=== PATIENT | female | born 1940 | race Caucasian/White ===

== ENCOUNTER → 2017-01-02 | Day surgery (SDC) | payer MEDICARE, BC ==
[~2017-01-02] MED LIST: CALC1TAB PO; CINN500C2 PO; DILT120C80 PO; DILT180C2 PO; FLUT9.9S NS; HYDR12.58 PO; HYDROmorphone 2 MG/ML VIAL IV PRN; INSU100C4 SQ; IV RINGERS,LACTATED 1000ML 1,000 ML IV SCH; LATA2.5D3 EACHEYE; LIDOCAINE 1% PF 2 ML VIAL. ID PRN; LIDOCAINE 2% PF Vial for OR 5 ML VIAL. ONE; LISI-334 PO; METH-39 PO; MORPHINE SULFATE 2 MG/ML DISP.SYRIN. IV PRN; MULT1TAB52 PO; OMEG1CAP38 PO; OMEP20CA9 PO; ONDANSETRON PF 4 MG/2 ML VIAL. IV PRN; OXYB5TAB7 PO; PROCHLORPERAZINE 10 MG/2 ML VIAL. IV PRN; PROPOFOL 40 ML IV ONE; TIMO10DR5 EACHEYE; fentaNYL PF VIAL 100 MCG/2 ML VIAL IV PRN
[2017-01-02 09:09] VITALS: BP 139/63
--- NOTE | 2017-01-04 00:02 | PATHOLOGY ---
PATHOLOGY REPORT * * * * * * * * FINAL DIAGNOSIS: Colorectal biopsies, rectal polyps: - Hyperplastic polyps. (JPM:amarilys; 01/03/2017) COMMENT: There are no adenomatous changes or evidence of malignancy. REPORT ELECTRONICALLY SIGNED BY: Elijah Etienne M.D. DATE/TIME: 01/03/2017 15:44 * * * * * * * * GROSS PATHOLOGY: Received in formalin labeled "Neo Tam, rectal polyps," are 3 segments of ceja soft tissue measuring 0.7 x 0.4 x 0.4 cm in aggregate dimensions and ranging from 0.2 to 0.3 cm in maximum dimension. The specimen is submitted entirely in cassette A1. (TSD; 01/02/2017) INITIAL CPT CODE(S): A; 47854 Professional services performed [place] [facility] [address] Technical services performed by [facility] at [address] [place] [address]. SPECIMEN(S) RECEIVED: A.Rectal polyps CLINICAL HISTORY: [facility] PATIENT: NEO TAM /AGE: 5 1940 (Age: 76) PATIENT #: [id number] ALT CASE #: SPECIMEN COLLECTION DATE: 01/02/2017 SPECIMEN RECEIVED DATE: 01/02/2017 [facility] - [address] [place] [address] - PHONE: [phone] * * * END OF REPORT * * *
== END | disposition home or self-care (01) ==
LOC: ENDOS 07:00
PROVIDERS: ATTEND Internal Medicine Gastroenterology
DX: Z09 Encounter for follow-up examination after completed treatment for conditions other than malignant neoplasm (principal); Z86.010 Personal history of colon polyps; K64.0 First degree hemorrhoids; K62.1 Rectal polyp; K57.30 Diverticulosis of large intestine without perforation or abscess without bleeding; K21.9 Gastro-esophageal reflux disease without esophagitis; E11.9 Type 2 diabetes mellitus without complications; Z98.41 Cataract extraction status, right eye; Z98.42 Cataract extraction status, left eye; Z98.890 Other specified postprocedural states; Z90.710 Acquired absence of both cervix and uterus; Z86.69 Personal history of other diseases of the nervous system and sense organs; Z87.442 Personal history of urinary calculi; Z86.39 Personal history of other endocrine, nutritional and metabolic disease; Z88.6 Allergy status to analgesic agent; Z88.0 Allergy status to penicillin; Z88.2 Allergy status to sulfonamides
CPT/HCPCS: 45380; 88305; J2704; J2001

== ENCOUNTER 2017-02-11 10:56 | Emergency (ER) | payer MEDICARE, BC ==
[~2017-02-11 10:56] MED LIST changes: -HYDROmorphone 2 MG/ML VIAL IV PRN; -IV RINGERS,LACTATED 1000ML 1,000 ML IV SCH; -LIDOCAINE 1% PF 2 ML VIAL. ID PRN; -LIDOCAINE 2% PF Vial for OR 5 ML VIAL. ONE; -MORPHINE SULFATE 2 MG/ML DISP.SYRIN. IV PRN; -ONDANSETRON PF 4 MG/2 ML VIAL. IV PRN; -PROCHLORPERAZINE 10 MG/2 ML VIAL. IV PRN; -PROPOFOL 40 ML IV ONE; -fentaNYL PF VIAL 100 MCG/2 ML VIAL IV PRN
[2017-02-11 11:23] VITALS: BP 170/108
--- NOTE | 2017-02-11 11:33 | PHYS DOC ---
Adult General Chief Complaint Chief Complaint: ANKLE PROBLEM HPI HPI Patient is a 76 year old female presents the ED complaining of right ankle injury 3 hours. Patient states she was sitting down reading and when she went to get up she twisted her ankle. Describes the pain as sharp. Rates the pain as 7 out of 10. Associated symptoms include swelling. Denies laceration, symptoms prior to fall, head/neck injury, LOC, vision changes or nausea/vomiting. Review of Systems Review of Systems Constitutional: Denies fever or chills [] Eyes: Denies change in visual acuity, redness, or eye pain [] HENT: Denies nasal congestion or sore throat [] Respiratory: Denies cough or shortness of breath [] Cardiovascular: No additional information not addressed in HPI [] GI: Denies abdominal pain, nausea, vomiting, bloody stools or diarrhea [] : Denies dysuria or hematuria [] Musculoskeletal: Complains of ankle pain. Denies back pain[] Integument: Denies rash or skin lesions [] Neurologic: Denies headache, focal weakness or sensory changes [] Endocrine: Denies polyuria or polydipsia [] All other systems were reviewed and found to be within normal limits, except as documented in this note. Allergies Allergies Allergies Coded Allergies Type Severity Reaction Last Updated Verified Penicillins Allergy Intermediate Hives 01/02/17 Yes Sulfa (Sulfonamide Antibiotics) Allergy Intermediate Hives 01/02/17 Yes aspirin Allergy Intermediate Swelling 01/02/17 Yes meperidine Allergy Mild Nausea and Vomiting 02/11/17 Yes Physical Exam Physical Exam Constitutional: Well developed, well nourished, no acute distress, non-toxic appearance. [] HENT: Normocephalic, atraumatic Skin: Warm, dry, no erythema, no rash. [] Back: No tenderness, no CVA tenderness. [] Extremities: MILD RIGHT ANKLE TENDERNESS/SWELLING, no cyanosis, no clubbing, ROM intact, no edema. [] Neurologic: Alert and oriented X 3, normal motor function, normal sensory function, no focal deficits noted. [] Psychologic: Affect normal, judgement normal, mood normal. [] Current Patient Data Vital Signs Vital Signs Date Time Temp Pulse Resp B/P (MAP) Pulse Ox O2 Delivery O2 Flow Rate FiO2 02/11/17 11:23 98.3 60 20 97 Room Air 98.3 EKG EKG [] Radiology/Procedures Radiology/Procedures PROCEDURE: ANKLE RIGHT 3V; FOOT RIGHT 3V Examination: 3 views of the right foot and right ankle History: History of injury Comparison: None available Findings: The alignment of the ankle mortise grossly appears unremarkable. Mild degenerative changes identified in the ankle joint. There is no obvious acute fracture visualized. Osseous demineralization limits evaluation. There is mild soft tissue swelling identified surrounding the ankle joint. The alignment of the tarsal bones, tarsometatarsal joints, interphalangeal grossly appears unremarkable. Mild degenerative changes identified in the tarsal joints. Impression: 1. No acute osseous findings. [] Course & Med Decision Making Course & Med Decision Making Pertinent Labs and Imaging studies reviewed. (See chart for details) []XR negative for acute injury. Patient's pain improved. Vital stable, no acute distress. Discussed symptomatic treatment. Patient able to ambulate on crutches patient brought into ED. Discussed follow-up outpatient with orthopedics if pain persists. Provided contact information/education. Discussed remaining non- weightbearing until further evaluation. Discussed reasons to return to the ED. Patient understands and agrees with plan. Dragon Disclaimer Dragon Disclaimer This electronic medical record was generated, in whole or in part, using a voice recognition dictation system. Departure Departure Impression: Primary Impression: Ankle sprain Disposition: 01 HOME, SELF-CARE Condition: IMPROVED Referrals: TYREE THURMAN MD (PCP) GUNJAN TYSON MD Patient Instructions: Ankle Sprain MARY LUTHER Feb 11, 2017 11:33
--- NOTE | 2017-02-11 12:12 | RAD ---
Examination: 3 views of the right foot and right ankle History: History of injury Comparison: None available Findings: The alignment of the ankle mortise grossly appears unremarkable. Mild degenerative changes identified in the ankle joint. There is no obvious acute fracture visualized. Osseous demineralization limits evaluation. There is mild soft tissue swelling identified surrounding the ankle joint. The alignment of the tarsal bones, tarsometatarsal joints, interphalangeal grossly appears unremarkable. Mild degenerative changes identified in the tarsal joints. Impression: 1. No acute osseous findings.
== END 2017-02-11 12:30 | disposition home or self-care (01) ==
LOC: ER 10:56
DX: S93.401A Sprain of unspecified ligament of right ankle, initial encounter (principal); Z88.0 Allergy status to penicillin; Z88.2 Allergy status to sulfonamides; Z88.6 Allergy status to analgesic agent; Z88.8 Allergy status to other drugs, medicaments and biological substances; X50.9XXA Other and unspecified overexertion or strenuous movements or postures, initial encounter; Y93.89 Activity, other specified; Y99.8 Other external cause status; Y92.89 Other specified places as the place of occurrence of the external cause
CPT/HCPCS: 73610; 73630; 99284

== ENCOUNTER 2020-06-11 10:19 | Observation (INO) | payer MEDICARE, BC ==
[~2020-06-11] VITALS: Ht 152.4 cm; Wt 86.5 kg
[~2020-06-11 10:19] MED LIST changes: -DILT120C80 PO; +DILT120C99 PO; -LISI-334 PO; +LISI20TA18 PO; +MULT-445 PO; -MULT1TAB52 PO; +OMEP20CA16 PO; -OMEP20CA9 PO; +OXYB5TAB10 PO; -OXYB5TAB7 PO
[2020-06-11] MEDS ORDERED: ONDANSETRON PF 4 MG/2 ML VIAL. IVP ONE ×2 (10:45→12:15)
[2020-06-11] MEDS ORDERED: IV NORMAL SALINE 1000ML BAG 1,000 ML IV ONE ×2 (10:45→16:15)
[2020-06-11 10:55] LABS: BASO # 0.1 x10^3/uL (0.0-0.2); BASO % 1 % (0-3); EOS % 0 % (0-3); HEMATOCRIT 46.7 % (36.0-47.0); HEMOGLOBIN 15.8 g/dL (12.0-15.5); LYMPH # 1.1 x10^3/uL (1.0-4.8); LYMPH % 10 % (24-48); MEAN CORPUSCULAR HEMOGLOBIN 31 pg (25-35); MEAN CORPUSCULAR HGB CONC 34 g/dL (31-37); MEAN CORPUSCULAR VOLUME 91 fL (79-100); MONO # 0.2 x10^3/uL (0.0-1.1); MONO % 2 % (0-9); NEUT # 9.1 x10^3/uL (1.8-7.7); NEUT % 88 % (31-73); PLATELET COUNT 172 x10^3/uL (140-400); RED BLOOD COUNT 5.16 x10^6/uL (3.50-5.40); RED CELL DISTRIBUTION WIDTH 13.7 % (11.5-14.5); WHITE BLOOD COUNT 10.4 x10^3/uL (4.0-11.0)
[2020-06-11 11:06] LABS: CALCIUM 8.6 mg/dL (8.5-10.1); CREATININE 0.8 mg/dL (0.6-1.0); GFR 69.4; POTASSIUM 3.3 mmol/L (3.5-5.1)
[2020-06-11 11:09] LABS: PROTHROMBIN TIME PATIENT 12.5 SEC (11.7-14.0)
[2020-06-11 11:11] LABS: ALBUMIN 3.6 g/dL (3.4-5.0); ALBUMIN/GLOBULIN RATIO 0.9 (1.0-1.7); MAGNESIUM 1.9 mg/dL (1.8-2.4); TOTAL BILIRUBIN 0.6 mg/dL (0.2-1.0); TOTAL PROTEIN 7.6 g/dL (6.4-8.2)
[2020-06-11 11:17] LABS: D-DIMER 0.9 ug/mlFEU (0.00-0.50)
--- NOTE | 2020-06-11 11:42 | PHYS DOC ---
Past Medical History Past Medical History: Diabetes-Type II, GERD, Hypertension, Kidney Stone, Other Additional Past Medical Histor: "high" HR Past Surgical History: Other Additional Past Surgical Histo: LEFT BREAST MASTECTOMY, BILATERAL CATARACT'S SX, RIGHT SHOULDER SX Smoking Status: Never Smoker Alcohol Use: None Drug Use: None General Adult EDM: Chief Complaint: CHEST PAIN HPI: HPI: Vanessa is a 79-year-old female with a history of diabetes mellitus type 2, hypertension, and mitral regurgitation. She presents to the emergency room today for substernal chest pressure that is unrelenting, in addition to nausea and vomiting. She states that she developed nausea at 12 AM last night; she was already awake at this time and was resting. Originally, she had epigastric abdominal pain that she rated 8 out of 10. She states the pain did not radiate, it was sharp, and got better as she vomited. She began to experience substernal chest pressure that she rated a 3 out of 10. She states the pain did not radiate, and there were no palliative or provoking factors noted by the patient. She denies being short of breath at the time, and has never experienced this type of chest pressure before. Review of Systems: Review of Systems: Constitutional: Denies fever or chills Eyes: Denies redness or eye pain HENT: Denies nasal congestion or sore throat Respiratory: Denies shortness of breath; reports cough Cardiovascular: Reports substernal chest pressure GI: Reports abdominal pain, nausea, and vomiting every hour : Denies dysuria or hematuria Musculoskeletal: Denies back pain or joint pain Integument: Denies rash or skin lesions Neurologic: Denies headache, focal weakness or sensory changes Complete systems were reviewed and found to be within normal limits, except as documented in this note. Heart Score: C/O Chest Pain: Yes HEART Score for Chest Pain: HEART Score for Chest Pain Response (Comments) Value History Moderately Suspicious 1 ECG Normal 0 Age > 65 2 Risk Factors >3 Risk Factors or Hx CAD 2 Troponin < Normal Limit 0 Total 5 Risk Factors: Risk Factors: DM, Current or recent (<one month) smoker, HTN, HLP, family history of CAD, obesity. Risk Scores: Score 0 - 3: 2.5% MACE over next 6 weeks - Discharge Home Score 4 - 6: 20.3% MACE over next 6 weeks - Admit for Clinical Observation Score 7 - 10: 72.7% MACE over next 6 weeks - Early Invasive Strategies Current Medications: Current Medications Medications (Trade) Dose Ordered Sig/Jammie Start Time Stop Time Status Last Admin Dose Admin Ondansetron HCl (Zofran) 4 mg 1X ONCE 06/11/20 10:45 06/11/20 10:46 DC 06/11/20 11:02 4 MG Sodium Chloride 1,000 ml @ 1,000 mls/hr 1X ONCE 06/11/20 10:45 06/11/20 11:44 06/11/20 11:02 1,000 MLS/HR Allergies: Allergies: Allergies Coded Allergies Type Severity Reaction Last Updated Verified Penicillins Allergy Intermediate Hives 01/02/17 Yes Sulfa (Sulfonamide Antibiotics) Allergy Intermediate Hives 01/02/17 Yes aspirin Allergy Intermediate Swelling 01/02/17 Yes meperidine Allergy Mild Nausea and Vomiting 02/11/17 Yes Physical Exam: PE: Constitutional: Well developed, well nourished, no acute distress, non-toxic appearance HENT: Normocephalic, atraumatic, dry mucous membranes Eyes: PERRL, EOMI, conjunctiva normal, no discharge Neck: Normal range of motion, no tenderness, supple Lungs & Thorax: No respiratory distress, equal chest rise and fall, holosystolic 2 out of 6 murmur appreciated on left sternal border Abdomen: Soft, no tenderness, negative Gonzalez's sign, no pulsatile masses Skin: Warm, dry, no erythema, no rash Back: No tenderness, no CVA tenderness Extremities: No tenderness, ROM intact; 1+ lower extremity pitting edema bilaterally extending up to mid chirinos Neurologic: Alert and oriented X 3, normal motor function, normal sensory function, no focal deficits noted Psychologic: Affect normal, judgment normal Current Patient Data: Labs: Laboratory Tests Test 06/11/20 10:43 06/11/20 10:58 White Blood Count 10.4 x10^3/uL (4.0-11.0) Red Blood Count 5.16 x10^6/uL (3.50-5.40) Hemoglobin 15.8 g/dL (12.0-15.5) H Hematocrit 46.7 % (36.0-47.0) Mean Corpuscular Volume 91 fL (79-100) Mean Corpuscular Hemoglobin 31 pg (25-35) Mean Corpuscular Hemoglobin Concent 34 g/dL (31-37) Red Cell Distribution Width 13.7 % (11.5-14.5) Platelet Count 172 x10^3/uL (140-400) Neutrophils (%) (Auto) 88 % (31-73) H Lymphocytes (%) (Auto) 10 % (24-48) L Monocytes (%) (Auto) 2 % (0-9) Eosinophils (%) (Auto) 0 % (0-3) Basophils (%) (Auto) 1 % (0-3) Neutrophils # (Auto) 9.1 x10^3/uL (1.8-7.7) H Lymphocytes # (Auto) 1.1 x10^3/uL (1.0-4.8) Monocytes # (Auto) 0.2 x10^3/uL (0.0-1.1) Eosinophils # (Auto) 0.0 x10^3/uL (0.0-0.7) Basophils # (Auto) 0.1 x10^3/uL (0.0-0.2) Platelet Estimate Pending Prothrombin Time 12.5 SEC (11.7-14.0) Prothrombin Time INR 1.0 (0.8-1.1) Activated Partial Thromboplast Time 27 SEC (24-38) D-Dimer (Erin) 0.90 ug/mlFEU (0.00-0.50) H Sodium Level 138 mmol/L (136-145) Potassium Level 3.3 mmol/L (3.5-5.1) L Chloride Level 99 mmol/L (98-107) Carbon Dioxide Level 29 mmol/L (21-32) Anion Gap 10 (6-14) Blood Urea Nitrogen 16 mg/dL (7-20) Creatinine 0.8 mg/dL (0.6-1.0) Estimated GFR (Cockcroft-Gault) 69.4 BUN/Creatinine Ratio 20 (6-20) Glucose Level 210 mg/dL (70-99) H Calcium Level 8.6 mg/dL (8.5-10.1) Magnesium Level 1.9 mg/dL (1.8-2.4) Total Bilirubin 0.6 mg/dL (0.2-1.0) Aspartate Amino Transferase (AST) 25 U/L (15-37) Alanine Aminotransferase (ALT) 40 U/L (14-59) Alkaline Phosphatase 83 U/L (46-116) Troponin I Quantitative < 0.017 ng/mL (0.000-0.055) Total Protein 7.6 g/dL (6.4-8.2) Albumin 3.6 g/dL (3.4-5.0) Albumin/Globulin Ratio 0.9 (1.0-1.7) L Lipase 37 U/L (73-393) L Glucose (Fingerstick) 222 mg/dL (70-99) H Laboratory Tests 06/11/20 10:43 Laboratory Tests 06/11/20 10:43 Vital Signs: Vital Signs Date Time Temp Pulse Resp B/P (MAP) Pulse Ox O2 Delivery O2 Flow Rate FiO2 06/11/20 10:25 97.9 87 16 185/84 (117) 95 Room Air 97.9 EKG: EK06/11/2020 1028 Heart rate: 74 QRS: 90 ms QT: 404 ms QTc: 449 ms EKG shows normal sinus rhythm, with left axis deviation. No ST segment abnormalities noted. Radiology/Procedures: Radiology/Procedures: PROCEDURE: CT ANGIO CHEST (Pulmonary Embolism protocol) 06/11/2020 Clinical History: Chest pain. Elevated d-dimer. Technique: After the intravenous administration of 100 cc of Omnipaque 350, contiguous, 0.625 mm axial sections were obtained through the chest. 2 mm axial and 3D MIP coronal and sagittal reconstructed images were obtained. One or more of the following individualized dose reduction techniques were utilized for this study: 1. Automated exposure control. 2. Adjustment of the mA and/or kV according to patient size. 3. Use of iterative reconstruction technique. Findings: No filling defect is seen within the major branches of either pulmonary artery. There is no CT evidence of pulmonary embolism. The heart is mild to moderately enlarged. Atherosclerotic calcification of the thoracic aorta is seen. Scattered coronary artery calcifications are seen. Mitral annular calcifications are noted. There is a small sliding hiatal hernia. A prominent mediastinal lymph node is seen anterior to the trachea. This measures 1.7 cm in size. Minimal dependent subsegmental atelectasis is seen involving both lungs. A 1.6 cm somewhat rounded opacity is seen involving the anterior aspect of the right upper lobe. This may represent an area of infiltrate and/or atelectasis. A mass lesion is not excluded. No area of consolidation, pleural effusion or pneumothorax is seen. IMPRESSION: 1. There is no CT evidence of pulmonary embolism. 2. 1.6 cm somewhat rounded opacity is seen involving the right upper lobe. This may represent an area of infiltrate and/or atelectasis. A mass lesion (bronchogenic carcinoma) is not excluded. This could be further evaluated with PET/CT scan. Procedure: CT scan of the abdomen and pelvis with contrast 06/11/2020 CLINICAL HISTORY: Abdominal pain. TECHNIQUE: After the intravenous administration of 100 cc of Isovue-370 only, contiguous, 5 mm axial sections were obtained through the abdomen and pelvis. One or more of the following individualized dose reduction techniques were utilized for this study: 1. Automated exposure control. 2. Adjustment of the mA and/or kV according to patient size. 3. Use of iterative reconstruction technique. FINDINGS: Images through the lung bases demonstrate mild to moderate ca rdiomegaly. Dependent subsegmental atelectasis seen involving both lower lobes. The liver, spleen, pancreas, adrenal glands and right kidney are within normal limits. Rounded low-attenuation lesions are seen involving the left kidney which measure 3 mm to 1.4 cm in size. These likely represent cysts. A 6 mm nonobstructing calculus is seen involving the lower pole of the left kidney. Atherosclerotic calcification of the abdominal aorta is seen. The abdominal aorta tapers normally. The gallbladder is distended. Small dependent portions calcified gallstones are seen within the gallbladder. No free fluid or free air is seen within the abdomen. There is no evidence of bowel obstruction. Diverti cula are seen throughout the colon. No inflammatory changes are seen adjacent fat. Very mild S-shaped curvature of the thoracolumbar spine is seen. Degenerative changes are seen involving lower thoracic and throughout the lumbar spine along with both hips. IMPRESSION: No acute abnormality is seen. Electronically signed by: Olaf Kumar MD (06/11/2020 1:14 PM) [id number] Course & Med Decision Making: Course & Med Decision Making Vanessa Hyde is a 79-year-old female with significant cardiac risk factors (heart score 5). She presented to the emergency room today with nausea, vomiting, and a substernal nonradiating pressure like sensation. Based on the patient's description of her pain she received a cardiac work-up. With her age, risk factors, and original description of her abdominal pain she underwent a CT angio of her chest, and a CTA of her abdomen and pelvis due to her intractable vomiting. The patient's cardiac enzymes returned, in addition to her CT angio of her chest. However, a small nodule was noted by the radiologist and this was discussed with the patient. She acknowledges that she needs to follow-up with her primary care physician regarding this nodule. The patient's nausea and vomiting has continued despite medications to treat her in the emergency room. Based on her cardiac risk factors and her nausea and vomiting, the decision was made to admit her for observation. The patient received both doses of the COVID-19 vaccine, with the last dose being on May 31. She has not been in contact with anyone with COVID-19. Patient requiring admission for further observation. Discussed with Dr. Neil (hospitalist) who is in agreement with admission. Discussed findings and plan with patient, who acknowledges understanding and agreement. Иван Disclaimer: Иван Disclaimer: This electronic medical record was generated, in whole or in part, using a voice recognition dictation system. Departure Departure Referrals: TYREE THURMAN MD (PCP) GUS SHARIF DO Jun 11, 2020 11:42
[2020-06-11] MEDS ORDERED: FAMOTIDINE 20 MG/2 ML VIAL IVP ONE (11:45)
[2020-06-11] MEDS ORDERED: IOHEXOL 350 MG/ML 100 ML VIAL. IV ONE (11:45)
--- NOTE | 2020-06-11 11:58 | EKG ---
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
[2020-06-11] MEDS ORDERED: CONTRAST GIVEN. MC PRN (12:00)
[2020-06-11 12:09] LABS: % BANDS 4 % (0-9); % BASOS 1 % (0-3); % LYMPHS 7 % (24-48); % MONOS 2 % (0-10); % SEGS 86 % (35-66); PLT ESTIMATE ADEQUATE (ADEQUATE)
[2020-06-11] MEDS ORDERED: POTASSIUM CHLORIDE 20 MEQ TABLET.ER. PO ONE (12:30)
[2020-06-11 12:49] LABS: BILIRUBIN,URINE NEGATIVE (NEG); CLARITY,URINE CLEAR; COLOR,URINE YELLOW; NITRITE,URINE NEGATIVE (NEG); PROTEIN,URINE 30 mg/dL (NEG-TRACE)
[2020-06-11 12:59] LABS: BACTERIA,URINE MANY /HPF (0-FEW)
[2020-06-11] MEDS ORDERED: diphenhydrAMINE 50 MG/ML VIAL IVP ONE (13:15)
[2020-06-11] MEDS ORDERED: METOCLOPRAMIDE HCL 10 MG/2 ML VIAL. IVP ONE (13:15)
--- NOTE | 2020-06-11 13:16 | RAD ---
CTA scan of the Chest with Contrast (Pulmonary Embolism protocol) 06/11/2020 Clinical History: Chest pain. Elevated d-dimer. Technique: After the intravenous administration of 100 cc of Omnipaque 350, contiguous, 0.625 mm axia l sections were obtained through the chest. 2 mm axial and 3D MIP coronal and sagittal reconstructed images were obtained. One or more of the following individualized dose reduction techniques were utilized for this study: 1. Automated exposure control. 2. Adjustment of the mA and/or kV according to patient size. 3. Use of iterative reconstruction technique. Findings: No filling defect is seen within the major branches of either pulmonary artery. There is n o CT evidence of pulmonary embolism. The heart is mild to moderately enlarged. Atherosclerotic calcif ication of the thoracic aorta is seen. Scattered coronary artery calcifications are seen. Mitral sandip lar calcifications are noted. There is a small sliding hiatal hernia. A prominent mediastinal lymph n ode is seen anterior to the trachea. This measures 1.7 cm in size. Minimal dependent subsegmental atelectasis is seen involving both lungs. A 1.6 cm somewhat rounded op acity is seen involving the anterior aspect of the right upper lobe. This may represent an area of in filtrate and/or atelectasis. A mass lesion is not excluded. No area of consolidation, pleural effusio n or pneumothorax is seen. IMPRESSION: 1. There is no CT evidence of pulmonary embolism. 2. 1.6 cm somewhat rounded opacity is seen involving the right upper lobe. This may represent an are a of infiltrate and/or atelectasis. A mass lesion (bronchogenic carcinoma) is not excluded. This coul d be further evaluated with PET/CT scan. CT scan of the abdomen and pelvis with contrast 06/11/2020 CLINICAL HISTORY: Abdominal pain. TECHNIQUE: After the intravenous administration of 100 cc of Isovue-370 only, contiguous, 5 mm axial sections were obtained through the abdomen and pelvis. One or more of the following individualized dose reduction techniques were utilized for this study: 1. Automated exposure control. 2. Adjustment of the mA and/or kV according to patient size. 3. Use of iterative reconstruction technique. FINDINGS: Images through the lung bases demonstrate mild to moderate cardiomegaly. Dependent subsegme ntal atelectasis seen involving both lower lobes. The liver, spleen, pancreas, adrenal glands and right kidney are within normal limits. Rounded low-at tenuation lesions are seen involving the left kidney which measure 3 mm to 1.4 cm in size. These like ly represent cysts. A 6 mm nonobstructing calculus is seen involving the lower pole of the left kidne y. Atherosclerotic calcification of the abdominal aorta is seen. The abdominal aorta tapers normally. Th e gallbladder is distended. Small dependent portions calcified gallstones are seen within the gallbla dder. No free fluid or free air is seen within the abdomen. There is no evidence of bowel obstruction . Diverticula are seen throughout the colon. No inflammatory changes are seen adjacent fat. Very mild S-shaped curvature of the thoracolumbar spine is seen. Degenerative changes are seen involv ing lower thoracic and throughout the lumbar spine along with both hips. IMPRESSION: No acute abnormality is seen. Electronically signed by: Olaf Kumar MD (06/11/2020 1:14 PM) [id number]
[2020-06-11] MEDS ORDERED: ONDANSETRON PF 4 MG/2 ML VIAL. IV PRN (14:15)
--- NOTE | 2020-06-11 14:25 | PDOC1 ---
History and Physical Date of Admission Date of Admission DATE: 06/11/20 TIME: 14:09 Identification/Chief Complaint Chief Complaint Chest pain Source Source: Caregiver, Chart review, Patient History of Present Illness History of Present Illness Patient is a 79-year-old female past medical history DM2, breast cancer, who presents to the ED with complaints of chest pain that started today. She reports left-sided, dull chest pain, 4/10. Associated nausea, vomiting, and diarrhea that began yesterday. Patient initially thought her symptoms were due to food poisoning, but her ate same food without any symptoms. She does have a history of GERD but states her current symptoms do not feel similar. Upon arrival in the ED initial troponin was undetectable, D-dimer was elevated at 0.9, EKG with no ST changes. CTA chest was obtained that was negative for PE but did show 1.6 cm opacity in right upper lobe that could represent infiltrate, atelectasis, or mass lesion. Of note patient's son states that both patient and her vaccinated for COVID-19 over 2 weeks ago. Due to significant cardiac risk factors, will admit patient for further medical management. Past Medical History Past Medical History DM2, hypertension, GERD, breast cancer Past Surgical History Past Surgical History Left mastectomy, bilateral cataracts Family History Family History CAD, TIA Social History Smoke: No ALCOHOL: none Drugs: None Current Medications Current Medications Current Medications Sodium Chloride 1,000 ml @ 1,000 mls/hr 1X ONCE IV Last administered on 06/11/20at 11:02; Start 06/11/20 at 10:45; Stop 06/11/20 at 11:44; Status DC Ondansetron HCl (Zofran) 4 mg 1X ONCE IVP Last administered on 06/11/20at 11:02; Start 06/11/20 at 10:45; Stop 06/11/20 at 10:46; Status DC Famotidine (Pepcid Vial) 20 mg 1X ONCE IVP Last administered on 06/11/20at 12:32; Start 06/11/20 at 11:45; Stop 06/11/20 at 11:46; Status DC Iohexol (Omnipaque 350 Mg/ml) 100 ml 1X ONCE IV Last administered on 06/11/20at 12:20; Start 06/11/20 at 11:45; Stop 06/11/20 at 11:49; Status DC Info (CONTRAST GIVEN -- Rx MONITORING) 1 each PRN DAILY PRN MC SEE COMMENTS; Start 06/11/20 at 12:00; Stop 06/13/20 at 11:59 Potassium Chloride (Klor-Con) 40 meq 1X ONCE PO Last administered on 06/11/20at 12:32; Start 06/11/20 at 12:30; Stop 06/11/20 at 12:31; Status DC Ondansetron HCl (Zofran) 4 mg 1X ONCE IVP Last administered on 06/11/20at 12:32; Start 06/11/20 at 12:15; Stop 06/11/20 at 12:16; Status DC Metoclopramide HCl (Reglan Vial) 10 mg 1X ONCE IVP Last administered on 06/11/20at 13:27; Start 06/11/20 at 13:15; Stop 06/11/20 at 13:16; Status DC Diphenhydramine HCl (Benadryl) 25 mg 1X ONCE IVP Last administered on 06/11/20at 13:27; Start 06/11/20 at 13:15; Stop 06/11/20 at 13:16; Status DC Active Scripts Active Reported Flonase Allergy Relief (Fluticasone Propionate) 9.9 Ml [place].susp 2 Sprays NS DAILY PRN Fiber (Methylcellulose) 500 Mg Tablet 500 Mg PO QODAY Multivitamins (Multivitamin) 1 Each Tablet 1 Tab PO DAILY Cinnamon (Cinnamon Bark) 500 Mg Capsule 1,000 Mg PO DAILY Carson 3 Fish Oil Softgel (Carson-3 Fatty Acids/Fish Oil) 1 Each Capsule.dr 1 Each PO DAILY Caltrate 600 + D Tablet (Calcium Carbonate/Vitamin D3) 1 Each Tablet 1 Each PO DAILY Omeprazole 20 Mg Capsule.dr 1 Cap PO DAILY Cardizem Cd (Diltiazem Hcl) 180 Mg Cap.er.24h 90 Mg PO HS Diltiazem 24HR Cd (Diltiazem Hcl) 120 Mg Cap.er.24h 240 Mg PO DAILY Hydrochlorothiazide Tablet (Hydrochlorothiazide) 12.5 Mg Tablet 1 Tab PO DAILY Lisinopril 20 Mg Tablet 1 Tab PO DAILY Oxybutynin Chloride 5 Mg Tablet 10 Mg PO DAILY Novolog (Insulin Aspart) 100 Unit/1 Ml Cartridge 100 Unit SQ TIDAC Latanoprost 2.5 Ml Drops 1 Drop EACHEYE QHS Timoptic (Timolol Maleate) 10 Ml Drops 1 Drop EACHEYE BID Allergies Allergies: Coded Allergies: Penicillins (Verified Allergy, Intermediate, Hives, 01/02/17) Sulfa (Sulfonamide Antibiotics) (Verified Allergy, Intermediate, Hives, 01/02/17) aspirin (Verified Allergy, Intermediate, Swelling, 01/02/17) meperidine (Verified Allergy, Mild, Nausea and Vomiting, 02/11/17) ROS Review of System GENERAL: No history of weight change, weakness or fevers. SKIN: No bruising, hair changes or rashes. EYES: No blurred, double or loss of vision. NOSE AND THROAT: No history of nosebleeds, hoarseness or sore throat. HEART: Chest pain. Denies palpitations. LUNGS: Denies cough, hemoptysis, wheezing or shortness of breath. GASTROINTESTINAL: Nausea, vomiting, diarrhea. Epigastric abdominal pain. GENITOURINARY: Denies dysuria, frequency, urgency, hematuria. NEUROLOGIC: Denies history of numbness, tingling, tremor or weakness. PSYCHIATRIC: Denies anxiety, denies depression. ENDOCRINE: No history of heat or cold intolerance, polyuria or polydipsia. EXTREMITIES: Denies muscle weakness, joint pain, pain on walking or stiffness. Physical Exam Physical Exam General: Alert, Oriented X3, Cooperative, moderate distress HEENT: PERRLA, EOMI Lungs: Clear to auscultation, Normal air movement Heart: RRR, no murmurs Cardiovascular: S1, S2 Abdomen: Normal bowel sounds, Soft, No tenderness Extremities: 2+ pitting edema bilateral lower extremities. No clubbing, No cyanosis Skin: No rashes, No significant lesion Neuro: Normal speech, Normal tone, Sensation intact Psych/Mental Status: Mental status NL, Mood NL Vitals Vitals Vital Signs Date Time Temp Pulse Resp B/P (MAP) Pulse Ox O2 Delivery O2 Flow Rate FiO2 06/11/20 13:27 90 179/79 (112) 95 Room Air 06/11/20 10:25 97.9 16 97.9 Labs Labs Laboratory Tests Test 06/11/20 10:43 06/11/20 10:58 06/11/20 12:30 White Blood Count 10.4 x10^3/uL (4.0-11.0) Red Blood Count 5.16 x10^6/uL (3.50-5.40) Hemoglobin 15.8 g/dL (12.0-15.5) Hematocrit 46.7 % (36.0-47.0) Mean Corpuscular Volume 91 fL (79-100) Mean Corpuscular Hemoglobin 31 pg (25-35) Mean Corpuscular Hemoglobin Concent 34 g/dL (31-37) Red Cell Distribution Width 13.7 % (11.5-14.5) Platelet Count 172 x10^3/uL (140-400) Neutrophils (%) (Auto) 88 % (31-73) Lymphocytes (%) (Auto) 10 % (24-48) Monocytes (%) (Auto) 2 % (0-9) Eosinophils (%) (Auto) 0 % (0-3) Basophils (%) (Auto) 1 % (0-3) Neutrophils # (Auto) 9.1 x10^3/uL (1.8-7.7) Lymphocytes # (Auto) 1.1 x10^3/uL (1.0-4.8) Monocytes # (Auto) 0.2 x10^3/uL (0.0-1.1) Eosinophils # (Auto) 0.0 x10^3/uL (0.0-0.7) Basophils # (Auto) 0.1 x10^3/uL (0.0-0.2) Segmented Neutrophils % 86 % (35-66) Band Neutrophils % 4 % (0-9) Lymphocytes % 7 % (24-48) Monocytes % 2 % (0-10) Basophils % 1 % (0-3) Platelet Estimate Adequate (ADEQUATE) Prothrombin Time 12.5 SEC (11.7-14.0) Prothromb Time International Ratio 1.0 (0.8-1.1) Activated Partial Thromboplast Time 27 SEC (24-38) D-Dimer (Erin) 0.90 ug/mlFEU (0.00-0.50) Sodium Level 138 mmol/L (136-145) Potassium Level 3.3 mmol/L (3.5-5.1) Chloride Level 99 mmol/L (98-107) Carbon Dioxide Level 29 mmol/L (21-32) Anion Gap 10 (6-14) Blood Urea Nitrogen 16 mg/dL (7-20) Creatinine 0.8 mg/dL (0.6-1.0) Estimated GFR (Cockcroft-Gault) 69.4 BUN/Creatinine Ratio 20 (6-20) Glucose Level 210 mg/dL (70-99) Calcium Level 8.6 mg/dL (8.5-10.1) Magnesium Level 1.9 mg/dL (1.8-2.4) Total Bilirubin 0.6 mg/dL (0.2-1.0) Aspartate Amino Transf (AST/SGOT) 25 U/L (15-37) Alanine Aminotransferase (ALT/SGPT) 40 U/L (14-59) Alkaline Phosphatase 83 U/L (46-116) Troponin I Quantitative < 0.017 ng/mL (0.000-0.055) TF-Muh-L-Type Natriuretic Peptide 1160 pg/mL (0-449) Total Protein 7.6 g/dL (6.4-8.2) Albumin 3.6 g/dL (3.4-5.0) Albumin/Globulin Ratio 0.9 (1.0-1.7) Lipase 37 U/L (73-393) Glucose (Fingerstick) 222 mg/dL (70-99) Urine Collection Type Unknown Urine Color Yellow Urine Clarity Clear Urine pH 7.0 (<5.0-8.0) Urine Specific [place] 1.020 (1.000-1.030) Urine Protein 30 mg/dL (NEG-TRACE) Urine Glucose (UA) 250 mg/dL (NEG) Urine Ketones (Stick) 40 mg/dL (NEG) Urine Blood Negative (NEG) Urine Nitrite Negative (NEG) Urine Bilirubin Negative (NEG) Urine Urobilinogen Dipstick 1.0 mg/dL (0.2 mg/dL) Urine Leukocyte Esterase Negative (NEG) Urine RBC 1-2 /HPF (0-2) Urine WBC 1-4 /HPF (0-4) Urine Squamous Epithelial Cells Few /LPF Urine Bacteria Many /HPF (0-FEW) Laboratory Tests Test 06/11/20 10:43 06/11/20 10:58 06/11/20 12:30 White Blood Count 10.4 x10^3/uL (4.0-11.0) Red Blood Count 5.16 x10^6/uL (3.50-5.40) Hemoglobin 15.8 g/dL (12.0-15.5) Hematocrit 46.7 % (36.0-47.0) Mean Corpuscular Volume 91 fL (79-100) Mean Corpuscular Hemoglobin 31 pg (25-35) Mean Corpuscular Hemoglobin Concent 34 g/dL (31-37) Red Cell Distribution Width 13.7 % (11.5-14.5) Platelet Count 172 x10^3/uL (140-400) Neutrophils (%) (Auto) 88 % (31-73) Lymphocytes (%) (Auto) 10 % (24-48) Monocytes (%) (Auto) 2 % (0-9) Eosinophils (%) (Auto) 0 % (0-3) Basophils (%) (Auto) 1 % (0-3) Neutrophils # (Auto) 9.1 x10^3/uL (1.8-7.7) Lymphocytes # (Auto) 1.1 x10^3/uL (1.0-4.8) Monocytes # (Auto) 0.2 x10^3/uL (0.0-1.1) Eosinophils # (Auto) 0.0 x10^3/uL (0.0-0.7) Basophils # (Auto) 0.1 x10^3/uL (0.0-0.2) Segmented Neutrophils % 86 % (35-66) Band Neutrophils % 4 % (0-9) Lymphocytes % 7 % (24-48) Monocytes % 2 % (0-10) Basophils % 1 % (0-3) Platelet Estimate Adequate (ADEQUATE) Prothrombin Time 12.5 SEC (11.7-14.0) Prothromb Time International Ratio 1.0 (0.8-1.1) Activated Partial Thromboplast Time 27 SEC (24-38) D-Dimer (Erin) 0.90 ug/mlFEU (0.00-0.50) Sodium Level 138 mmol/L (136-145) Potassium Level 3.3 mmol/L (3.5-5.1) Chloride Level 99 mmol/L (98-107) Carbon Dioxide Level 29 mmol/L (21-32) Anion Gap 10 (6-14) Blood Urea Nitrogen 16 mg/dL (7-20) Creatinine 0.8 mg/dL (0.6-1.0) Estimated GFR (Cockcroft-Gault) 69.4 BUN/Creatinine Ratio 20 (6-20) Glucose Level 210 mg/dL (70-99) Calcium Level 8.6 mg/dL (8.5-10.1) Magnesium Level 1.9 mg/dL (1.8-2.4) Total Bilirubin 0.6 mg/dL (0.2-1.0) Aspartate Amino Transf (AST/SGOT) 25 U/L (15-37) Alanine Aminotransferase (ALT/SGPT) 40 U/L (14-59) Alkaline Phosphatase 83 U/L (46-116) Troponin I Quantitative < 0.017 ng/mL (0.000-0.055) TT-Lbm-D-Type Natriuretic Peptide 1160 pg/mL (0-449) Total Protein 7.6 g/dL (6.4-8.2) Albumin 3.6 g/dL (3.4-5.0) Albumin/Globulin Ratio 0.9 (1.0-1.7) Lipase 37 U/L (73-393) Glucose (Fingerstick) 222 mg/dL (70-99) Urine Collection Type Unknown Urine Color Yellow Urine Clarity Clear Urine pH 7.0 (<5.0-8.0) Urine Specific [place] 1.020 (1.000-1.030) Urine Protein 30 mg/dL (NEG-TRACE) Urine Glucose (UA) 250 mg/dL (NEG) Urine Ketones (Stick) 40 mg/dL (NEG) Urine Blood Negative (NEG) Urine Nitrite Negative (NEG) Urine Bilirubin Negative (NEG) Urine Urobilinogen Dipstick 1.0 mg/dL (0.2 mg/dL) Urine Leukocyte Esterase Negative (NEG) Urine RBC 1-2 /HPF (0-2) Urine WBC 1-4 /HPF (0-4) Urine Squamous Epithelial Cells Few /LPF Urine Bacteria Many /HPF (0-FEW) Images Images CT ANGIO CHEST W ABD PEL W/ CTA scan of the Chest with Contrast (Pulmonary Embolism protocol) 06/11/2020 Clinical History: Chest pain. Elevated d-dimer. Technique: After the intravenous administration of 100 cc of Omnipaque 350, contiguous, 0.625 mm axial sections were obtained through the chest. 2 mm axial and 3D MIP coronal and sagittal reconstructed images were obtained. One or more of the following individualized dose reduction techniques were utilized for this study: 1. Automated exposure control. 2. Adjustment of the mA and/or kV according to patient size. 3. Use of iterative reconstruction technique. Findings: No filling defect is seen within the major branches of either pulmonary artery. There is no CT evidence of pulmonary embolism. The heart is mild to moderately enlarged. Atherosclerotic calcification of the thoracic aorta is seen. Scattered coronary artery calcifications are seen. Mitral annular calcifications are noted. There is a small sliding hiatal hernia. A prominent mediastinal lymph node is seen anterior to the trachea. This measures 1.7 cm in size. Minimal dependent subsegmental atelectasis is seen involving both lungs. A 1.6 cm somewhat rounded opacity is seen involving the anterior aspect of the right upper lobe. This may represent an area of infiltrate and/or atelectasis. A mass lesion is not excluded. No area of consolidation, pleural effusion or pneumothorax is seen. IMPRESSION: 1. There is no CT evidence of pulmonary embolism. 2. 1.6 cm somewhat rounded opacity is seen involving the right upper lobe. This may represent an area of infiltrate and/or atelectasis. A mass lesion (bronchogenic carcinoma) is not excluded. This could be further evaluated with PET/CT scan. CT scan of the abdomen and pelvis with contrast 06/11/2020 CLINICAL HISTORY: Abdominal pain. TECHNIQUE: After the intravenous administration of 100 cc of Isovue-370 only, contiguous, 5 mm axial sections were obtained through the abdomen and pelvis. One or more of the following individualized dose reduction techniques were utilized for this study: 1. Automated exposure control. 2. Adjustment of the mA and/or kV according to patient size. 3. Use of iterative reconstruction technique. FINDINGS: Images through the lung bases demonstrate mild to moderate cardiomegaly. Dependent subsegmental atelectasis seen involving both lower lobes. The liver, spleen, pancreas, adrenal glands and right kidney are within normal limits. Rounded low-attenuation lesions are seen involving the left kidney which measure 3 mm to 1.4 cm in size. These likely represent cysts. A 6 mm nonobstructing calculus is seen involving the lower pole of the left kidney. Atherosclerotic calcification of the abdominal aorta is seen. The abdominal aorta tapers normally. The gallbladder is distended. Small dependent portions calcified gallstones are seen within the gallbladder. No free fluid or free air is seen within the abdomen. There is no evidence of bowel obstruction. Diverticula are seen throughout the colon. No inflammatory changes are seen adjacent fat. Very mild S-shaped curvature of the thoracolumbar spine is seen. Degenerative changes are seen involving lower thoracic and throughout the lumbar spine along with both hips. IMPRESSION: No acute abnormality is seen. VTE Prophylaxis Ordered VTE Prophylaxis Devices: No VTE Pharmacological Prophylaxi: Yes Assessment/Plan Assessment/Plan Chest pain 1.6 cm opacity in right upper lobe concerning for mass lesion Gastroenteritis Hypokalemia Elevated BNP DM2 with hyperglycemia COVID-19 PUI Plan: Initial troponin <0.017, will continue to trend; consult to cardiology Will obtain echocardiogram Will consult pulmonology for mass lesion in right upper lobe and history of breast cancer. Resume home medications Basal/prandial insulin Differential for concerns of nausea, vomiting, diarrhea also viral gastroenteritis; COVID-19 pending. FEN - clear liquid diet PPX - Heparin FULL CODE Dispo - inpatient for above; patient name her son as her surrogate decision- maker. Justifications for Admission Other Justification CHEYENNE PARR MD Jun 11, 2020 14:25
[2020-06-11] MEDS ORDERED: IV DEXTROSE 5% 250 ML BAG. IV PRN (15:00)
[2020-06-11] MEDS ORDERED: DEXTROSE 50% 25 GM / 50ML DISP.SYRIN. IV PRN (15:00)
[2020-06-11] MEDS ORDERED: BISACODYL 10 MG SUPP.RECT. PR PRN (15:15)
[2020-06-11] MEDS ORDERED: ACETAMINOPHEN 325 MG TABLET. PO PRN (15:15)
[2020-06-11] MEDS ORDERED: CALCIUM CARBONATE 500 MG TAB.CHEW PO PRN (15:15)
[2020-06-11] MEDS ORDERED: MAG HYDROX/ALUMINUM HYD/SIMETH 30 ML ORAL.SUSP PO PRN (15:15)
[2020-06-11] MEDS ORDERED: MAGNESIUM HYDROXIDE 2,400 MG/30 ML ORAL.SUSP. PO PRN (15:15)
[2020-06-11] MEDS ORDERED: ZOLPIDEM 5 MG TABLET. PO PRN (15:15)
[2020-06-11] MEDS ORDERED: MORPHINE SULFATE 4 MG/ML VIAL. IV PRN (15:15)
[2020-06-11] MEDS ORDERED: LABETALOL 20 MG/4 ML DISP.SYRIN. IVP PRN (15:15)
[2020-06-11] MEDS ORDERED: ONDANSETRON PF 4 MG/2 ML VIAL. IVP PRN (15:15)
[2020-06-11] MEDS ORDERED: ENOXAPARIN 40 MG/0.4 ML SYRINGE. SQ SCH (16:00)
[2020-06-11] MEDS ORDERED: INSULIN LISPRO 300 UNITS/3 ML VIAL. SQ SCH (17:00)
[2020-06-11 18:14] VITALS: BP 139/63
[2020-06-11] MEDS ORDERED: PROCHLORPERAZINE 10 MG/2 ML VIAL. IV PRN (18:45)
[2020-06-11] MEDS ORDERED: dilTIAZem HCL 30 MG TABLET PO SCH (21:00)
[2020-06-11] MEDS ORDERED: INSULIN GLARGINE SYRINGE. SQ SCH (21:00)
--- NOTE | 2020-06-11 22:04 | NUR ---
Dr Neil paged per answering service - returned call at [phone]. RN needed verification on med orders. Orders given and placed
[2020-06-11 23:00] VITALS: BP 162/74
[2020-06-12 03:00] VITALS: BP 144/63
[2020-06-12 07:00] VITALS: BP 175/70
[2020-06-12] MEDS ORDERED: INSULIN LISPRO 300 UNITS/3 ML VIAL. SQ SCH ×3 (08:00→17:00)
[2020-06-12 08:04] LABS: CHOLESTEROL/HDL RATIO 3.6
--- NOTE | 2020-06-12 08:23 | PDOC2 ---
CONSULT Date of Consult Date of Consult DATE: 06/12/20 TIME: 08:23 Reason for Consult Reason for Consult: Chest pain Referring Physician Referring Physician: Dr. Neil Identification/Chief Complaint Chief Complaint Chest pain Source Source: Chart review, Patient History of Present Illness Reason for Visit: 79-year-old female apparently had epigastric pain followed by nausea and vomiting and retrosternal chest pain last night. She apparently thought this was secondary to food poisoning but her who ate the same meal did not have any symptoms. Chest pain was relieved with medication she received in the ED. Her nausea has improved since admission as well. She denied any chest pain or shortness of breath on exertion prior to this episode. She has history of mitral regurgitation and follows with cardiology at [facility]. She stated that that she was seen there few months ago. Past Medical History Past Medical History Hypertension Diabetes mellitus type 2 Gastroesophageal reflux disease Mitral regurgitation Past Surgical History Past Surgical History Bilateral cataract surgery Shoulder surgery Mastectomy Family History Family History Negative for premature coronary disease Social History No ALCOHOL: none Drugs: None Current Medications Current Medications Current Medications Sodium Chloride 1,000 ml @ 1,000 mls/hr 1X ONCE IV Last administered on 06/11/20at 11:02; Start 06/11/20 at 10:45; Stop 06/11/20 at 11:44; Status DC Ondansetron HCl (Zofran) 4 mg 1X ONCE IVP Last administered on 06/11/20at 11:02; Start 06/11/20 at 10:45; Stop 06/11/20 at 10:46; Status DC Famotidine (Pepcid Vial) 20 mg 1X ONCE IVP Last administered on 06/11/20at 12:32; Start 06/11/20 at 11:45; Stop 06/11/20 at 11:46; Status DC Iohexol (Omnipaque 350 Mg/ml) 100 ml 1X ONCE IV Last administered on 06/11/20at 12:20; Start 06/11/20 at 11:45; Stop 06/11/20 at 11:49; Status DC Info (CONTRAST GIVEN -- Rx MONITORING) 1 each PRN DAILY PRN MC SEE COMMENTS; Start 06/11/20 at 12:00; Stop 06/13/20 at 11:59 Potassium Chloride (Klor-Con) 40 meq 1X ONCE PO Last administered on 06/11/20at 12:32; Start 06/11/20 at 12:30; Stop 06/11/20 at 12:31; Status DC Ondansetron HCl (Zofran) 4 mg 1X ONCE IVP Last administered on 06/11/20at 12:32; Start 06/11/20 at 12:15; Stop 06/11/20 at 12:16; Status DC Metoclopramide HCl (Reglan Vial) 10 mg 1X ONCE IVP Last administered on 06/11/20at 13:27; Start 06/11/20 at 13:15; Stop 06/11/20 at 13:16; Status DC Diphenhydramine HCl (Benadryl) 25 mg 1X ONCE IVP Last administered on 06/11/20at 13:27; Start 06/11/20 at 13:15; Stop 06/11/20 at 13:16; Status DC Ondansetron HCl (Zofran) 4 mg PRN Q8HRS PRN IV NAUSEA/VOMITING; Start 06/11/20 at 14:15; Stop 06/12/20 at 14:14 Insulin Glargine (Lantus Syringe) 30 unit QHS SQ ; Start 06/11/20 at 21:00; Stop 06/11/20 at 22:27; Status DC Insulin Human Lispro (HumaLOG) 10 units TIDWMEALS SQ ; Start 06/11/20 at 17:00; Stop 06/11/20 at 22:27; Status DC Dextrose (Dextrose 50%-Water Syringe) 12.5 gm PRN Q15MIN PRN IV SEE COMMENTS; Start 06/11/20 at 15:00 Dextrose (Iv Dextrose 5%) 250 ml PRN Q15MIN PRN IV SEE COMMENTS; Start 06/11/20 at 15:00; Stop 06/11/20 at 22:34; Status DC Ondansetron HCl (Zofran) 4 mg PRN Q6HRS PRN IVP NAUSEA/VOMITING; Start 06/11/20 at 15:15 Al Hydroxide/Mg Hydroxide (Mylanta Plus Xs) 30 ml PRN Q3HRS PRN PO HEARTBURN / GAS; Start 06/11/20 at 15:15 Calcium Carbonate/ Glycine (Tums) 500 mg PRN Q3HRS PRN PO UPSET STOMACH; Start 06/11/20 at 15:15 Zolpidem Tartrate (Ambien) 5 mg PRN QHS PRN PO INSOMNIA, MAY REPEAT IN 1HR; Start 06/11/20 at 15:15 Acetaminophen (Tylenol) 650 mg PRN Q6HRS PRN PO Headaches, Temp > 101.5F; Start 06/11/20 at 15:15 Magnesium Hydroxide (Milk Of Magnesia) 2,400 mg PRN Q12HR PRN PO CONSTIPATION; Start 06/11/20 at 15:15 Bisacodyl (Dulcolax Supp) [address] CONSTIPATION; Start 06/11/20 at 15:15 Enoxaparin Sodium (Lovenox 40mg Syringe) 40 mg Q24H SQ Last administered on 06/11/20at 17:50; Start 06/11/20 at 16:00 Morphine Sulfate (Morphine Sulfate) 4 mg PRN Q2HR PRN IV CHEST PAIN; Start 06/11/20 at 15:15 Labetalol HCl (Normodyne Iv Push) 20 mg PRN Q30MIN PRN IVP HYPERTENSION; Start 06/11/20 at 15:15 Diltiazem HCl (Cardizem) 90 mg HS PO ; Start 06/11/20 at 21:00; Status Cancel Diltiazem HCl (Cardizem 24hr Cd) 240 mg DAILY PO ; Start 06/12/20 at 09:00; Status Cancel Lisinopril (Prinivil) 20 mg DAILY PO ; Start 06/12/20 at 09:00 Hydrochlorothiazide (Microzide) 12.5 mg DAILY PO ; Start 06/12/20 at 09:00 Pantoprazole Sodium (PROTONIX VIAL for IV PUSH) 40 mg DAILY IVP ; Start 06/12/20 at 09:00; Status Cancel Sodium Chloride 1,000 ml @ 100 mls/hr 1X ONCE IV Last administered on 06/11/20at 17:50; Start 06/11/20 at 16:15; Stop 06/12/20 at 02:14; Status DC Prochlorperazine Edisylate (Compazine) 10 mg PRN Q6HRS PRN IV NAUSEA/VOMITING; Start 06/11/20 at 18:45 Latanoprost (Xalatan) 1 drop QHS OU ; Start 06/12/20 at 21:00 Vitamin D (Vitamin D3) 1,000 unit DAILY PO ; Start 06/12/20 at 09:00 Fish Oil (Fish Oil) 1,000 mg DAILY PO ; Start 06/12/20 at 09:00 Multivitamins (Thera M Plus) 1 tab DAILY PO ; Start 06/12/20 at 09:00 Insulin Human Lispro (HumaLOG) 13 units DAILYWBKFT SQ ; Start 06/12/20 at 08:00 Insulin Human Lispro (HumaLOG) 15 units DAILYWLUN SQ ; Start 06/12/20 at 12:00 Insulin Human Lispro (HumaLOG) 25 units DAILYWSUP SQ ; Start 06/12/20 at 17:00 Oxybutynin Chloride (Ditropan) 5 mg [id number] PO ; Start 06/12/20 at 09:00 Active Scripts Active Reported Flonase Allergy Relief (Fluticasone Propionate) 9.9 Ml [place].susp 2 Sprays NS DAILY PRN Fiber (Methylcellulose) 500 Mg Tablet 500 Mg PO QODAY Multivitamins (Multivitamin) 1 Each Tablet 1 Tab PO DAILY Cinnamon (Cinnamon Bark) 500 Mg Capsule 1,000 Mg PO DAILY Dexter 3 Fish Oil Softgel (Dexter-3 Fatty Acids/Fish Oil) 1 Each Capsule.dr 1 Each PO DAILY Caltrate 600 + D Tablet (Calcium Carbonate/Vitamin D3) 1 Each Tablet 1 Each PO DAILY Omeprazole 20 Mg Capsule.dr 1 Cap PO DAILY Cardizem Cd (Diltiazem Hcl) 180 Mg Cap.er.24h 90 Mg PO HS Diltiazem 24HR Cd (Diltiazem Hcl) 120 Mg Cap.er.24h 240 Mg PO DAILY Hydrochlorothiazide Tablet (Hydrochlorothiazide) 12.5 Mg Tablet 1 Tab PO DAILY Lisinopril 20 Mg Tablet 1 Tab PO DAILY Oxybutynin Chloride 5 Mg Tablet 10 Mg PO DAILY Novolog (Insulin Aspart) 100 Unit/1 Ml Cartridge 100 Unit SQ TIDAC Latanoprost 2.5 Ml Drops 1 Drop EACHEYE QHS Timoptic 0.5% (Timolol Maleate) 10 Ml Drops 1 Drop EACHEYE BID Allergies Allergies: Coded Allergies: Penicillins (Verified Allergy, Intermediate, Hives, 01/02/17) Sulfa (Sulfonamide Antibiotics) (Verified Allergy, Intermediate, Hives, 01/02/17) aspirin (Verified Allergy, Intermediate, Swelling, 01/02/17) meperidine (Verified Adverse Reaction, Mild, Nausea and Vomiting, 06/12/20) ROS PSYCHOLOGICAL ROS: No: Hallucinations Eyes: No Loss of vision HEENT: No: Epistaxis Respiratory: No: Hemoptysis Cardiovascular: yes Chest Pain Gastrointestinal: Yes Nausea, Yes Vomiting Genitourinary: No Hematuria Neurological: No Seizures Skin: No Rash Physical Exam General: Alert, Oriented X3 HEENT: Atraumatic, PERRLA Lungs: Clear to auscultation Heart: Regular rate Abdomen: Soft, No tenderness Extremities: No edema Neuro: Normal speech Psych/Mental Status: Mood NL Vitals VITALS Vital Signs Date Time Temp Pulse Resp B/P (MAP) Pulse Ox O2 Delivery O2 Flow Rate FiO2 06/12/20 03:00 97.9 70 144/63 (90) 98 97.9 06/11/20 23:00 18 Room Air Labs Labs Laboratory Tests Test 06/11/20 10:43 06/11/20 10:58 06/11/20 12:30 06/11/20 13:59 White Blood Count 10.4 x10^3/uL (4.0-11.0) Red Blood Count 5.16 x10^6/uL (3.50-5.40) Hemoglobin 15.8 g/dL (12.0-15.5) Hematocrit 46.7 % (36.0-47.0) Mean Corpuscular Volume 91 fL (79-100) Mean Corpuscular Hemoglobin 31 pg (25-35) Mean Corpuscular Hemoglobin Concent 34 g/dL (31-37) Red Cell Distribution Width 13.7 % (11.5-14.5) Platelet Count 172 x10^3/uL (140-400) Neutrophils (%) (Auto) 88 % (31-73) Lymphocytes (%) (Auto) 10 % (24-48) Monocytes (%) (Auto) 2 % (0-9) Eosinophils (%) (Auto) 0 % (0-3) Basophils (%) (Auto) 1 % (0-3) Neutrophils # (Auto) 9.1 x10^3/uL (1.8-7.7) Lymphocytes # (Auto) 1.1 x10^3/uL (1.0-4.8) Monocytes # (Auto) 0.2 x10^3/uL (0.0-1.1) Eosinophils # (Auto) 0.0 x10^3/uL (0.0-0.7) Basophils # (Auto) 0.1 x10^3/uL (0.0-0.2) Segmented Neutrophils % 86 % (35-66) Band Neutrophils % 4 % (0-9) Lymphocytes % 7 % (24-48) Monocytes % 2 % (0-10) Basophils % 1 % (0-3) Platelet Estimate Adequate (ADEQUATE) Prothrombin Time 12.5 SEC (11.7-14.0) Prothromb Time International Ratio 1.0 (0.8-1.1) Activated Partial Thromboplast Time 27 SEC (24-38) D-Dimer (Erin) 0.90 ug/mlFEU (0.00-0.50) Sodium Level 138 mmol/L (136-145) Potassium Level 3.3 mmol/L (3.5-5.1) Chloride Level 99 mmol/L (98-107) Carbon Dioxide Level 29 mmol/L (21-32) Anion Gap 10 (6-14) Blood Urea Nitrogen 16 mg/dL (7-20) Creatinine 0.8 mg/dL (0.6-1.0) Estimated GFR (Cockcroft-Gault) 69.4 BUN/Creatinine Ratio 20 (6-20) Glucose Level 210 mg/dL (70-99) Calcium Level 8.6 mg/dL (8.5-10.1) Magnesium Level 1.9 mg/dL (1.8-2.4) Total Bilirubin 0.6 mg/dL (0.2-1.0) Aspartate Amino Transf (AST/SGOT) 25 U/L (15-37) Alanine Aminotransferase (ALT/SGPT) 40 U/L (14-59) Alkaline Phosphatase 83 U/L (46-116) Troponin I Quantitative < 0.017 ng/mL (0.000-0.055) < 0.017 ng/mL (0.000-0.055) LS-Cbt-D-Type Natriuretic Peptide 1160 pg/mL (0-449) Total Protein 7.6 g/dL (6.4-8.2) Albumin 3.6 g/dL (3.4-5.0) Albumin/Globulin Ratio 0.9 (1.0-1.7) Lipase 37 U/L (73-393) Glucose (Fingerstick) 222 mg/dL (70-99) Urine Collection Type Unknown Urine Color Yellow Urine Clarity Clear Urine pH 7.0 (<5.0-8.0) Urine Specific [place] 1.020 (1.000-1.030) Urine Protein 30 mg/dL (NEG-TRACE) Urine Glucose (UA) 250 mg/dL (NEG) Urine Ketones (Stick) 40 mg/dL (NEG) Urine Blood Negative (NEG) Urine Nitrite Negative (NEG) Urine Bilirubin Negative (NEG) Urine Urobilinogen Dipstick 1.0 mg/dL (0.2 mg/dL) Urine Leukocyte Esterase Negative (NEG) Urine RBC 1-2 /HPF (0-2) Urine WBC 1-4 /HPF (0-4) Urine Squamous Epithelial Cells Few /LPF Urine Bacteria Many /HPF (0-FEW) Test 06/11/20 17:30 06/11/20 17:44 06/11/20 20:01 06/12/20 07:00 Troponin I Quantitative 0.025 ng/mL (0.000-0.055) Glucose (Fingerstick) 143 mg/dL (70-99) 147 mg/dL (70-99) Triglycerides Level 129 mg/dL (0-150) Cholesterol Level 148 mg/dL (0-200) LDL Cholesterol, Calculated 81 mg/dL (0-100) VLDL Cholesterol, Calculated 26 mg/dL (0-40) Non-HDL Cholesterol Calculated 107 mg/dL (0-129) HDL Cholesterol 41 mg/dL (40-60) Cholesterol/HDL Ratio 3.6 Test 06/12/20 07:39 Glucose (Fingerstick) 107 mg/dL (70-99) Laboratory Tests Test 06/11/20 10:43 06/11/20 10:58 06/11/20 12:30 06/11/20 13:59 White Blood Count 10.4 x10^3/uL (4.0-11.0) Red Blood Count 5.16 x10^6/uL (3.50-5.40) Hemoglobin 15.8 g/dL (12.0-15.5) Hematocrit 46.7 % (36.0-47.0) Mean Corpuscular Volume 91 fL (79-100) Mean Corpuscular Hemoglobin 31 pg (25-35) Mean Corpuscular Hemoglobin Concent 34 g/dL (31-37) Red Cell Distribution Width 13.7 % (11.5-14.5) Platelet Count 172 x10^3/uL (140-400) Neutrophils (%) (Auto) 88 % (31-73) Lymphocytes (%) (Auto) 10 % (24-48) Monocytes (%) (Auto) 2 % (0-9) Eosinophils (%) (Auto) 0 % (0-3) Basophils (%) (Auto) 1 % (0-3) Neutrophils # (Auto) 9.1 x10^3/uL (1.8-7.7) Lymphocytes # (Auto) 1.1 x10^3/uL (1.0-4.8) Monocytes # (Auto) 0.2 x10^3/uL (0.0-1.1) Eosinophils # (Auto) 0.0 x10^3/uL (0.0-0.7) Basophils # (Auto) 0.1 x10^3/uL (0.0-0.2) Segmented Neutrophils % 86 % (35-66) Band Neutrophils % 4 % (0-9) Lymphocytes % 7 % (24-48) Monocytes % 2 % (0-10) Basophils % 1 % (0-3) Platelet Estimate Adequate (ADEQUATE) Prothrombin Time 12.5 SEC (11.7-14.0) Prothromb Time International Ratio 1.0 (0.8-1.1) Activated Partial Thromboplast Time 27 SEC (24-38) D-Dimer (Erin) 0.90 ug/mlFEU (0.00-0.50) Sodium Level 138 mmol/L (136-145) Potassium Level 3.3 mmol/L (3.5-5.1) Chloride Level 99 mmol/L (98-107) Carbon Dioxide Level 29 mmol/L (21-32) Anion Gap 10 (6-14) Blood Urea Nitrogen 16 mg/dL (7-20) Creatinine 0.8 mg/dL (0.6-1.0) Estimated GFR (Cockcroft-Gault) 69.4 BUN/Creatinine Ratio 20 (6-20) Glucose Level 210 mg/dL (70-99) Calcium Level 8.6 mg/dL (8.5-10.1) Magnesium Level 1.9 mg/dL (1.8-2.4) Total Bilirubin 0.6 mg/dL (0.2-1.0) Aspartate Amino Transf (AST/SGOT) 25 U/L (15-37) Alanine Aminotransferase (ALT/SGPT) 40 U/L (14-59) Alkaline Phosphatase 83 U/L (46-116) Troponin I Quantitative < 0.017 ng/mL (0.000-0.055) < 0.017 ng/mL (0.000-0.055) MX-Ggq-U-Type Natriuretic Peptide 1160 pg/mL (0-449) Total Protein 7.6 g/dL (6.4-8.2) Albumin 3.6 g/dL (3.4-5.0) Albumin/Globulin Ratio 0.9 (1.0-1.7) Lipase 37 U/L (73-393) Glucose (Fingerstick) 222 mg/dL (70-99) Urine Collection Type Unknown Urine Color Yellow Urine Clarity Clear Urine pH 7.0 (<5.0-8.0) Urine Specific [place] 1.020 (1.000-1.030) Urine Protein 30 mg/dL (NEG-TRACE) Urine Glucose (UA) 250 mg/dL (NEG) Urine Ketones (Stick) 40 mg/dL (NEG) Urine Blood Negative (NEG) Urine Nitrite Negative (NEG) Urine Bilirubin Negative (NEG) Urine Urobilinogen Dipstick 1.0 mg/dL (0.2 mg/dL) Urine Leukocyte Esterase Negative (NEG) Urine RBC 1-2 /HPF (0-2) Urine WBC 1-4 /HPF (0-4) Urine Squamous Epithelial Cells Few /LPF Urine Bacteria Many /HPF (0-FEW) Test 06/11/20 17:30 06/11/20 17:44 06/11/20 20:01 06/12/20 07:00 Troponin I Quantitative 0.025 ng/mL (0.000-0.055) Glucose (Fingerstick) 143 mg/dL (70-99) 147 mg/dL (70-99) Triglycerides Level 129 mg/dL (0-150) Cholesterol Level 148 mg/dL (0-200) LDL Cholesterol, Calculated 81 mg/dL (0-100) VLDL Cholesterol, Calculated 26 mg/dL (0-40) Non-HDL Cholesterol Calculated 107 mg/dL (0-129) HDL Cholesterol 41 mg/dL (40-60) Cholesterol/HDL Ratio 3.6 Test 06/12/20 07:39 Glucose (Fingerstick) 107 mg/dL (70-99) Assessment/Plan Assessment/Plan 1. Chest pain with atypical features and most probably GI etiology. Myocardial infarction has been ruled out. Consider ischemic evaluation with nuclear stress test as an outpatient, possibly with primary floor scraper at [facility]. 2. Acute gastroenteritis: Continue supportive care per IM 3. Diabetes mellitus type 2 with hyperglycemia: Treat per primary team 4. Right upper lobe opacity noted on CT scan. Patient has history of breast cancer. Pulmonary team has been consulted. Thank you for your consultation NICK GARVEY MD Jun 12, 2020 08:23
[2020-06-12] MEDS: OXYBUTYNIN CHLORIDE 5 MG TABLET PO SCH ×2 (08:30→14:00)
[2020-06-12 08:50] LABS: CREATININE 0.9 mg/dL (0.6-1.0); GFR 60.6; POTASSIUM 3.6 mmol/L (3.5-5.1)
[2020-06-12] MEDS ORDERED: OMEGA-3 FATTY ACIDS/FISH OIL 1,000 MG CAPSULE. PO SCH (09:00)
[2020-06-12] MEDS ORDERED: MULTIVITAMIN with MINERAL TABLET. PO SCH (09:00)
[2020-06-12] MEDS ORDERED: LISINOPRIL 20 MG TABLET PO SCH (09:00)
[2020-06-12] MEDS ORDERED: hydroCHLOROthiazide 12.5 MG CAPSULE PO SCH (09:00)
[2020-06-12] MEDS ORDERED: PANTOPRAZOLE IV PUSH 40 MG VIAL. IVP SCH (09:00)
[2020-06-12] MEDS ORDERED: CHOLECALCIFEROL (VITAMIN D3) 1,000 UNIT TABLET PO SCH (09:00)
[2020-06-12 11:00] VITALS: BP 148/66
--- NOTE | 2020-06-12 14:16 | PDOC ---
[employer] PROGRESS NOTE Date of Service DOS: DATE: 06/12/20 TIME: 14:13 Chief Complaint Chief Complaint Chest pain -atypical. Resolved. 1.6 cm opacity in right upper lobe concerning for mass lesion Gastroenteritis -self-limiting 24-hour likely this is viral Hypokalemia Elevated BNP DM2 with hyperglycemia COVID-19 PUI -will inform patient if test is positive otherwise she will go home into the care of her family History of Present Illness History of Present Illness Ms Hyde is a 79-year-old female w/ PMHx HTN, urinary retention, DM2, breast cancer who was admitted through ED for epigastric pain followed by nausea and vomiting and retrosternal chest pain overnight on 06/11/2020. She apparently thought this was secondary to food poisoning but her who ate the same me al did not have any symptoms. Chest pain was relieved with medication she received in the ED. Her nausea has improved since admission as well. She denied any chest pain or shortness of breath on exertion prior to this episode. She has history of mitral regurgitation and follows with cardiology at [facility]. She stated that that she was seen there few months ago. D-dimer was elevated at 0.9 therefore she underwent a CTPA with no CT evidence of pulmonary embolism, but a finding of 1.6 cm somewhat rounded opacity involving the right upper lobe. CT abdomen pelvis showed no acute abnormality She tolerated breakfast and lunch but her only complaint was that it was cold and she wanted to have hot food. Seen by cardiology noted significant cardiac event. She does have outpatient follow-up with screen printing machine operator helper at [facility] and will have outpatient stress testing there. She has follow-up with her matrix repairer on 06/14/2020. She also has pulmonary follow-up and primary care follow-up in the next 2 weeks. Vitals/I&O Vitals/I&O: Vital Signs Date Time Temp Pulse Resp B/P (MAP) Pulse Ox O2 Delivery O2 Flow Rate FiO2 06/12/20 11:00 98.2 74 17 148/66 (93) 98 Room Air 98.2 I & O 06/11/20 06/11/20 06/12/20 15:00 23:00 07:00 Intake Total 1000 ml Output Total 0 ml Balance 1000 ml 0 ml Physical Exam General: Alert, Oriented X3 Heart: Regular rate Abdomen: Soft, No tenderness Extremities: No edema Labs Labs: Laboratory Tests Test 06/11/20 17:00 06/11/20 17:30 06/11/20 17:44 06/11/20 20:01 SARS-CoV-2 RNA (HILARIO) Negative (Negative) Troponin I Quantitative 0.025 ng/mL (0.000-0.055) Glucose (Fingerstick) 143 mg/dL (70-99) 147 mg/dL (70-99) Test 06/12/20 07:00 06/12/20 07:39 06/12/20 11:30 Sodium Level 143 mmol/L (136-145) Potassium Level 3.6 mmol/L (3.5-5.1) Chloride Level 105 mmol/L (98-107) Carbon Dioxide Level 31 mmol/L (21-32) Anion Gap 7 (6-14) Blood Urea Nitrogen 14 mg/dL (7-20) Creatinine 0.9 mg/dL (0.6-1.0) Estimated GFR (Cockcroft-Gault) 60.6 Glucose Level 104 mg/dL (70-99) Calcium Level 8.0 mg/dL (8.5-10.1) Triglycerides Level 129 mg/dL (0-150) Cholesterol Level 148 mg/dL (0-200) LDL Cholesterol, Calculated 81 mg/dL (0-100) VLDL Cholesterol, Calculated 26 mg/dL (0-40) Non-HDL Cholesterol Calculated 107 mg/dL (0-129) HDL Cholesterol 41 mg/dL (40-60) Cholesterol/HDL Ratio 3.6 Glucose (Fingerstick) 107 mg/dL (70-99) 187 mg/dL (70-99) Comment Review of Relevant I have reviewed the following items bean (where applicable) has been applied. Medications: Current Medications Medications (Trade) Dose Ordered Sig/Jammie Route PRN Reason Start Time Stop Time Status Last Admin Dose Admin Enoxaparin Sodium (Lovenox 40mg Syringe) 40 mg Q24H SQ 06/11/20 16:00 06/11/20 17:50 Lisinopril (Prinivil) 20 mg DAILY PO 06/12/20 09:00 06/12/20 08:31 Hydrochlorothiazide (Microzide) 12.5 mg DAILY PO 06/12/20 09:00 06/12/20 08:31 Sodium Chloride 1,000 ml @ 100 mls/hr 1X ONCE IV 06/11/20 16:15 06/12/20 02:14 DC 06/11/20 17:50 Vitamin D (Vitamin D3) 1,000 unit DAILY PO 06/12/20 09:00 06/12/20 08:30 Fish Oil (Fish Oil) 1,000 mg DAILY PO 06/12/20 09:00 06/12/20 08:31 Multivitamins (Thera M Plus) 1 tab DAILY PO 06/12/20 09:00 06/12/20 08:30 Insulin Human Lispro (HumaLOG) 15 units DAILYWLUN SQ 06/12/20 12:00 06/12/20 12:05 Oxybutynin Chloride (Ditropan) 5 mg [id number] PO 06/12/20 09:00 06/12/20 08:30 Justifications for Admission Other Justification CHENCHO AGUILERA MD Jun 12, 2020 14:16
--- NOTE | 2020-06-12 14:19 | PDOC3 ---
Discharge Summary Visit Information Date of Admission: Jun 11, 2020 Date of Discharge: Jun 12, 2020 Admitting Diagnosis: Epigastric abdominal pain Final Diagnosis VIral gastroenteritis Brief Hospital Course Allergies Allergies Coded Allergies Type Severity Reaction Last Updated Verified Penicillins Allergy Intermediate Hives 01/02/17 Yes Sulfa (Sulfonamide Antibiotics) Allergy Intermediate Hives 01/02/17 Yes aspirin Allergy Intermediate Swelling 01/02/17 Yes meperidine Adverse Reaction Mild Nausea and Vomiting 06/12/20 Yes Vital Signs Vital Signs Date Time Temp Pulse Resp B/P (MAP) Pulse Ox O2 Delivery O2 Flow Rate FiO2 06/12/20 11:00 98.2 74 17 148/66 (93) 98 Room Air 98.2 Lab Results Laboratory Tests Test 06/11/20 10:43 06/11/20 10:58 06/11/20 12:30 06/11/20 13:59 White Blood Count 10.4 x10^3/uL (4.0-11.0) Red Blood Count 5.16 x10^6/uL (3.50-5.40) Hemoglobin 15.8 g/dL (12.0-15.5) Hematocrit 46.7 % (36.0-47.0) Mean Corpuscular Volume 91 fL (79-100) Mean Corpuscular Hemoglobin 31 pg (25-35) Mean Corpuscular Hemoglobin Concent 34 g/dL (31-37) Red Cell Distribution Width 13.7 % (11.5-14.5) Platelet Count 172 x10^3/uL (140-400) Neutrophils (%) (Auto) 88 % (31-73) Lymphocytes (%) (Auto) 10 % (24-48) Monocytes (%) (Auto) 2 % (0-9) Eosinophils (%) (Auto) 0 % (0-3) Basophils (%) (Auto) 1 % (0-3) Neutrophils # (Auto) 9.1 x10^3/uL (1.8-7.7) Lymphocytes # (Auto) 1.1 x10^3/uL (1.0-4.8) Monocytes # (Auto) 0.2 x10^3/uL (0.0-1.1) Eosinophils # (Auto) 0.0 x10^3/uL (0.0-0.7) Basophils # (Auto) 0.1 x10^3/uL (0.0-0.2) Segmented Neutrophils % 86 % (35-66) Band Neutrophils % 4 % (0-9) Lymphocytes % 7 % (24-48) Monocytes % 2 % (0-10) Basophils % 1 % (0-3) Platelet Estimate Adequate (ADEQUATE) Prothrombin Time 12.5 SEC (11.7-14.0) Prothromb Time International Ratio 1.0 (0.8-1.1) Activated Partial Thromboplast Time 27 SEC (24-38) D-Dimer (Erin) 0.90 ug/mlFEU (0.00-0.50) Sodium Level 138 mmol/L (136-145) Potassium Level 3.3 mmol/L (3.5-5.1) Chloride Level 99 mmol/L (98-107) Carbon Dioxide Level 29 mmol/L (21-32) Anion Gap 10 (6-14) Blood Urea Nitrogen 16 mg/dL (7-20) Creatinine 0.8 mg/dL (0.6-1.0) Estimated GFR (Cockcroft-Gault) 69.4 BUN/Creatinine Ratio 20 (6-20) Glucose Level 210 mg/dL (70-99) Calcium Level 8.6 mg/dL (8.5-10.1) Magnesium Level 1.9 mg/dL (1.8-2.4) Total Bilirubin 0.6 mg/dL (0.2-1.0) Aspartate Amino Transf (AST/SGOT) 25 U/L (15-37) Alanine Aminotransferase (ALT/SGPT) 40 U/L (14-59) Alkaline Phosphatase 83 U/L (46-116) Troponin I Quantitative < 0.017 ng/mL (0.000-0.055) < 0.017 ng/mL (0.000-0.055) PL-Prt-Y-Type Natriuretic Peptide 1160 pg/mL (0-449) Total Protein 7.6 g/dL (6.4-8.2) Albumin 3.6 g/dL (3.4-5.0) Albumin/Globulin Ratio 0.9 (1.0-1.7) Lipase 37 U/L (73-393) Glucose (Fingerstick) 222 mg/dL (70-99) Urine Collection Type Unknown Urine Color Yellow Urine Clarity Clear Urine pH 7.0 (<5.0-8.0) Urine Specific [place] 1.020 (1.000-1.030) Urine Protein 30 mg/dL (NEG-TRACE) Urine Glucose (UA) 250 mg/dL (NEG) Urine Ketones (Stick) 40 mg/dL (NEG) Urine Blood Negative (NEG) Urine Nitrite Negative (NEG) Urine Bilirubin Negative (NEG) Urine Urobilinogen Dipstick 1.0 mg/dL (0.2 mg/dL) Urine Leukocyte Esterase Negative (NEG) Urine RBC 1-2 /HPF (0-2) Urine WBC 1-4 /HPF (0-4) Urine Squamous Epithelial Cells Few /LPF Urine Bacteria Many /HPF (0-FEW) Test 06/11/20 17:00 06/11/20 17:30 06/11/20 17:44 06/11/20 20:01 SARS-CoV-2 RNA (HILARIO) Negative (Negative) Troponin I Quantitative 0.025 ng/mL (0.000-0.055) Glucose (Fingerstick) 143 mg/dL (70-99) 147 mg/dL (70-99) Test 06/12/20 07:00 06/12/20 07:39 06/12/20 11:30 Sodium Level 143 mmol/L (136-145) Potassium Level 3.6 mmol/L (3.5-5.1) Chloride Level 105 mmol/L (98-107) Carbon Dioxide Level 31 mmol/L (21-32) Anion Gap 7 (6-14) Blood Urea Nitrogen 14 mg/dL (7-20) Creatinine 0.9 mg/dL (0.6-1.0) Estimated GFR (Cockcroft-Gault) 60.6 Glucose Level 104 mg/dL (70-99) Calcium Level 8.0 mg/dL (8.5-10.1) Triglycerides Level 129 mg/dL (0-150) Cholesterol Level 148 mg/dL (0-200) LDL Cholesterol, Calculated 81 mg/dL (0-100) VLDL Cholesterol, Calculated 26 mg/dL (0-40) Non-HDL Cholesterol Calculated 107 mg/dL (0-129) HDL Cholesterol 41 mg/dL (40-60) Cholesterol/HDL Ratio 3.6 Glucose (Fingerstick) 107 mg/dL (70-99) 187 mg/dL (70-99) Laboratory Tests Test 06/11/20 17:00 06/11/20 17:30 06/11/20 17:44 06/11/20 20:01 SARS-CoV-2 RNA (HILARIO) Negative (Negative) Troponin I Quantitative 0.025 ng/mL (0.000-0.055) Glucose (Fingerstick) 143 mg/dL (70-99) 147 mg/dL (70-99) Test 06/12/20 07:00 06/12/20 07:39 06/12/20 11:30 Sodium Level 143 mmol/L (136-145) Potassium Level 3.6 mmol/L (3.5-5.1) Chloride Level 105 mmol/L (98-107) Carbon Dioxide Level 31 mmol/L (21-32) Anion Gap 7 (6-14) Blood Urea Nitrogen 14 mg/dL (7-20) Creatinine 0.9 mg/dL (0.6-1.0) Estimated GFR (Cockcroft-Gault) 60.6 Glucose Level 104 mg/dL (70-99) Calcium Level 8.0 mg/dL (8.5-10.1) Triglycerides Level 129 mg/dL (0-150) Cholesterol Level 148 mg/dL (0-200) LDL Cholesterol, Calculated 81 mg/dL (0-100) VLDL Cholesterol, Calculated 26 mg/dL (0-40) Non-HDL Cholesterol Calculated 107 mg/dL (0-129) HDL Cholesterol 41 mg/dL (40-60) Cholesterol/HDL Ratio 3.6 Glucose (Fingerstick) 107 mg/dL (70-99) 187 mg/dL (70-99) Brief Hospital Course Ms Hyde is a 79-year-old female w/ PMHx HTN, urinary retention, DM2, breast cancer who was admitted through ED for epigastric pain followed by nausea and vomiting and retrosternal chest pain overnight on 06/11/2020. She apparently thought this was secondary to food poisoning but her who ate the same meal did not have any symptoms. Chest pain was relieved with medication she received in the ED. Her nausea has improved since admission as well. She denied any chest pain or shortness of breath on exertion prior to this episode. She has history of mitral regurgitation and follows with cardiology at [facility]. She stated that that she was seen there few months ago. D-dimer was elevated at 0.9 therefore she underwent a CTPA with no CT evidence of pulmonary embolism, but a finding of 1.6 cm somewhat rounded opacity involving the right upper lobe. CT abdomen pelvis showed no acute abnormality She tolerated breakfast and lunch but her only complaint was that it was cold and she wanted to have hot food. Seen by cardiology noted significant cardiac event. She does have outpatient follow-up with radio tower technician at [facility] and will have outpatient stress testing there. She has follow-up with her astronomy professor on 06/14/2020. She also has pulmonary follow-up and primary care follow-up in the next 2 weeks. Consults: Cardiology Problem list: Chest pain -atypical. Resolved. 1.6 cm opacity in right upper lobe concerning for mass lesion Gastroenteritis -self-limiting 24-hour likely this is viral Hypokalemia Elevated BNP DM2 with hyperglycemia COVID-19 PUI -will inform patient if test is positive otherwise she will go home into the care of her family Greater than 30 minutes spent on d/c home with self care. Discharge Information Condition at Discharge: Improved Follow Up: Weeks (1) Disposition/Orders: D/C to Home Scheduled Calcium Carbonate/Vitamin D3 (Caltrate 600 + D Tablet) 1 Each Tablet, 1 EACH PO DAILY, (Reported) Entered as Reported by: HAYLEE ORELLANA on 01/02/17800 Last Action: HELD on 06/11/201511 by CHEYENNE PARR MD Cinnamon Bark (Cinnamon) 500 Mg Capsule, 1,000 MG PO DAILY, (Reported) Entered as Reported by: HAYLEE ORELLANA on 01/02/17801 Last Action: HELD on 06/11/201511 by CHEYENNE PARR MD Diltiazem Hcl (Diltiazem 24HR Cd) 120 Mg Cap.er.24h, 240 MG PO DAILY, (Reported) Entered as Reported by: HAYLEE ORELLANA on 01/02/17799 Last Action: Continued on 06/11/201511 by CHEYENNE PARR MD Diltiazem Hcl (Cardizem Cd) 180 Mg Cap.er.24h, 90 MG PO HS for FOR HYPERTENSION, #30 Ref 0 (Reported) Entered as Reported by: HAYLEE ORELLANA on 01/02/17799 Last Action: Continued on 06/11/201511 by CHEYENNE PARR MD Hydrochlorothiazide (Hydrochlorothiazide Tablet) 12.5 Mg Tablet, 1 TAB PO DAILY, #30 Ref 5 (Reported) Entered as Reported by: HAYLEE ORELLANA on 01/02/17758 Last Action: Converted on 06/11/201511 by CHEYENNE PARR MD Insulin Aspart (Novolog) 100 Unit/1 Ml Cartridge, 100 UNIT SQ TIDAC, (Reported) Entered as Reported by: HAYLEE ORELLANA on 01/02/17756 Last Action: HELD on 06/11/201511 by CHEYENNE PARR MD Latanoprost (Latanoprost) 2.5 Ml Drops, 1 DROP EACHEYE QHS, #7.5 Ref 3 (Repo rted) Entered as Reported by: HAYLEE ORELLANA on 01/02/17755 Lisinopril (Lisinopril) 20 Mg Tablet, 1 TAB PO DAILY, #30 Ref 5 (Reported) Entered as Reported by: HAYLEE ORELLANA on 01/02/17757 Last Action: Continued on 06/11/201511 by CHEYENNE PARR MD Methylcellulose (Fiber) 500 Mg Tablet, 500 MG PO QODAY, (Reported) Entered as Reported by: HAYLEE ORELLANA on 01/02/17802 Last Action: HELD on 06/11/201511 by CHEYENNE PARR MD Multivitamin (Multivitamins) 1 Each Tablet, 1 TAB PO DAILY, #90 Ref 3 (Reported) Entered as Reported by: HAYLEE ORELLANA on 01/02/17802 Last Action: HELD on 06/11/201511 by CHEYENNE PARR MD [place]-3 Fatty Acids/Fish Oil ([place] 3 Fish Oil Softgel) 1 Each Capsule.dr, 1 EACH PO DAILY, (Reported) Entered as Reported by: HAYLEE ORELLANA on 01/02/17801 Last Action: HELD on 06/11/201511 by CHEYENNE PARR MD Omeprazole (Omeprazole) 20 Mg Capsule.dr, 1 CAP PO DAILY, #30 Ref 5 (Reported) Entered as Reported by: HAYLEE ORELLANA on 01/02/17800 Last Action: HELD on 06/11/201511 by CHEYENNE PARR MD Oxybutynin Chloride (Oxybutynin Chloride) 5 Mg Tablet, 10 MG PO DAILY, (Reported) Entered as Reported by: HAYLEE ORELLANA on 01/02/17 0758 Last Action: HELD on 06/11/201511 by CHEYENNE PARR MD Timolol Maleate 0.5% (Timoptic 0.5%) 10 Ml Drops, 1 DROP EACHEYE BID, #10 Ref 3 (Reported) Entered as Reported by: HAYLEE ORELLANA on 01/02/17 0756 Last Action: HELD on 06/11/201511 by CHEYENNE PARR MD Scheduled PRN Fluticasone Propionate (Flonase Allergy Relief) 9.9 Ml [place].susp, 2 SPRAYS NS DAILY PRN for CONGESTION, (Reported) Entered as Reported by: HAYLEE ORELLANA on 01/02/17 0804 Last Action: HELD on 06/11/201511 by CHEYENNE PARR MD Justicifation of Admission Dx: Justifications for Admission: Justification of Admission Dx: Yes CHF: Sev. Electrolyte Abnormal CHENCHO AGUILERA MD Jun 12, 2020 14:19
--- NOTE | 2020-06-12 14:46 | CONS ---
DATE OF CONSULTATION: PULMONARY CONSULTATION ATTENDING PHYSICIAN: Dr. Mani Neil. REASON FOR CONSULTATION: Abnormal CT chest with nodules in the right upper lobe. HISTORY OF PRESENT ILLNESS: The patient is a 79-year-old female who has type 2 diabetes, history of breast cancer 34 years ago with left mastectomy. She had no lymph nodes that were positive. She came into the hospital with left-sided chest pain. She also had a mild case of food poisoning when she had nausea, vomiting and diarrhea, which resolved. The patient had no headaches, no loss of weight. She has no exposure to COVID. The patient underwent CTA chest. There was no evidence of pulmonary embolism. I have reviewed the CT chest. There is a 1.6 cm rounded mass in the right upper lobe. There was no other nodules seen elsewhere in the lungs. I have been asked to see her for further evaluation. She denies any weight loss. She is not a smoker. PAST MEDICAL HISTORY: Significant for type 2 diabetes, hypertension, GERD, and breast cancer. PAST SURGICAL HISTORY: Left mastectomy and bilateral cataracts. FAMILY HISTORY: CAD. SOCIAL HISTORY: Nonsmoker, nonalcoholic. ALLERGIES: PENICILLIN, ASPIRIN, AND MEPERIDINE. MEDICATIONS: Reviewed as listed in the MRAD. REVIEW OF SYSTEMS: Twelve-point system obtained. Pertinent positives discussed in my history of present illness, otherwise noncontributory. All systems that were negative were reviewed as well. FAMILY HISTORY: Noncontributory to lungs. PHYSICAL EXAMINATION: VITAL SIGNS: Reviewed. Afebrile, pulse ox 98% on room air. NECK: Supple. LUNGS: Clear. CARDIOVASCULAR: With a regular rate. ABDOMEN: Soft, nontender. EXTREMITIES: With no pitting edema. LABORATORY DATA: Reviewed. White cell count 10.4, hemoglobin 15.8, platelets are 172. BUN and creatinine normal. IMPRESSION: 1. Abnormal CT chest with a 1.6 cm rounded mass in the right upper lobe close to the pleura. She is a nonsmoker. No constitutional symptoms of malignancy. She has history of breast cancer 34 years ago for which she had left mastectomy. The possibility of a neoplastic lesion cannot be ruled out. She is usually followed at [facility] where her primary care is. She prefers to have additional workup over there. 2. No significant tobacco history. 3. History of breast cancer with left mastectomy 34 years ago. 4. No weight loss. RECOMMENDATIONS: 1. Discussed with the patient and RN. The patient prefers to have a workup done at [facility] where her primary care and other specialists are there. She would also need to follow up with a photo studio assistant for a stress test regarding her left-sided chest pain. 2. I have given a copy of CT chest report. She will take it her primary care physician who can refer her for a PET scan and a television announcer over there. 3. From a pulmonary standpoint, she could be discharged home. JEAN CLAUDE CASTRO MD DR: KAZ/crystal JOB#: [id number] / [id number]
[2020-06-12 15:00] VITALS: BP 177/82
--- NOTE | 2020-06-12 16:13 | NUR ---
Pt left unit at approx 1605 by ambulation via private vehicle. Pt's IV removed without complication, VSS. Discharge paperwork and follow-up discussed with pt. Pt verbalizes understanding.
[2020-06-12] MEDS ORDERED: LATANOPROST 0.005% OPHTH SOLUTION 2.5ML BOTTLE. OU SCH (21:00)
== END 2020-06-12 16:05 | disposition home or self-care (01) ==
LOC: ER 10:19 → 2 SOUTH 14:03 → 6 SOUTH 16:59
PROVIDERS: ADMIT Family Medicine; ATTEND Family Medicine
DX: A08.4 Viral intestinal infection, unspecified (principal); Z20.822 Contact with and (suspected) exposure to COVID-19; R07.89 Other chest pain; K52.9 Noninfective gastroenteritis and colitis, unspecified; E87.6 Hypokalemia; I10 Essential (primary) hypertension; E11.65 Type 2 diabetes mellitus with hyperglycemia; K21.9 Gastro-esophageal reflux disease without esophagitis; I34.0 Nonrheumatic mitral (valve) insufficiency; I70.0 Atherosclerosis of aorta; J98.11 Atelectasis; K80.20 Calculus of gallbladder without cholecystitis without obstruction; Z85.3 Personal history of malignant neoplasm of breast; Z87.442 Personal history of urinary calculi; Z90.13 Acquired absence of bilateral breasts and nipples; Z98.41 Cataract extraction status, right eye; Z98.42 Cataract extraction status, left eye; Z98.890 Other specified postprocedural states
CPT/HCPCS: 36415; 71275; 74177; 80048; 80053; 80061; 81001; 82962; 83690; 83735; 83880; 84484; 85007; 85025; 85379; 85610; 85730; 87086; 93005; 96361; 96372; 96374; 96375; 96376; 99285; G0378; J1200; J1650; J1815; J2405; J2765; J3490; J7030; Q9967; U0003; 87077; 87186; G0379